=== PATIENT | female | born 1945 | race Caucasian/White ===

== ENCOUNTER 2017-01-28 09:27 | Emergency (ER) | payer MEDICARE, BC ==
[~2017-01-28] VITALS: Ht 160 cm; Wt 85.0 kg
[~2017-01-28 09:27] MED LIST: EPIPEN0.3 MG IM; KEFLEX500 M1 PO; MEDDOSEPAK PO; ROBITUSSIN AC10 ML PO; TAM75CAP PO
[2017-01-28 10:11] LABS: URINE BILIRUBIN - DIPSTICK NEGATIVE (NEGATIVE); URINE BLOOD DIPSTICK TRACE-INTACT (NEGATIVE); URINE COLOR YELLOW; URINE GLUCOSE - DIPSTICK NEGATIVE (NEGATIVE); URINE KETONE NEGATIVE (NEGATIVE); URINE PROTEIN - DIPSTICK NEGATIVE (NEG-TRACE); URINE SPECIFIC GRAVITY <=1.005
[2017-01-28 10:20] LABS: URINE LEUK ESTERASE SMALL (NEGATIVE); URINE NITRITE - DIPSTICK POSITIVE (Negative)
[2017-01-28 10:21] LABS: URINE CLARITY SLIGHT CLOUDY
[2017-01-28] MEDS ORDERED: CEPHALEXIN500 M1 PO (10:22)
[2017-01-28 10:24] LABS: URINE BACTERIA FEW hpf; URINE RBC 0-2 RBC/hpf (0-5)
[2017-01-28 10:30] VITALS: BP 144/76
[2017-01-28] MEDS ORDERED: DIFLUCAN150 MG PO (10:38)
== END 2017-01-28 10:30 | disposition home or self-care (01) ==
LOC: ED 09:27
PROVIDERS: Family Medicine
DX: N39.0 Urinary tract infection, site not specified (principal); R30.0 Dysuria; R35.0 Frequency of micturition

== ENCOUNTER 2018-01-20 11:31 | Emergency (ER) | payer MEDICARE, BC ==
[~2018-01-20] VITALS: Ht 160 cm; Wt 84.0 kg
[~2018-01-20 11:31] MED LIST changes: +CEPHALEXIN500 M1 PO; +DIFLUCAN150 MG PO
[2018-01-20 12:09] LABS: URINE BILIRUBIN - DIPSTICK NEGATIVE (NEGATIVE); URINE BLOOD DIPSTICK NEGATIVE (NEGATIVE); URINE CLARITY CLEAR; URINE COLOR YELLOW; URINE GLUCOSE - DIPSTICK NEGATIVE (NEGATIVE); URINE KETONE NEGATIVE (NEGATIVE); URINE LEUK ESTERASE NEGATIVE (NEGATIVE); URINE NITRITE - DIPSTICK NEGATIVE (Negative); URINE PH 5.5 (4.5-8.0); URINE PROTEIN - DIPSTICK NEGATIVE (NEG-TRACE); URINE SPECIFIC GRAVITY <=1.005; URINE UROBILINOGEN - DIPSTICK 0.2 E.U./dL (0.2)
[2018-01-20] MEDS ORDERED: PYRIDIUM200 MG PO (12:17)
[2018-01-20] MEDS ORDERED: MACRODANTIN100 MG PO (12:17)
[2018-01-20] MEDS ORDERED: DIFLUCAN100 MG PO (12:21)
[2018-01-20 12:22] VITALS: BP 135/73
== END 2018-01-20 12:22 | disposition home or self-care (01) ==
LOC: ED 11:31
PROVIDERS: Emergency Medicine
DX: N34.2 Other urethritis (principal)

== ENCOUNTER 2020-01-02 11:03 | Emergency (ER) | payer MEDICARE, BC ==
[~2020-01-02] VITALS: Ht 160 cm; Wt 72.7 kg
[~2020-01-02 11:03] MED LIST changes: +DIFLUCAN100 MG PO; +MACRODANTIN100 MG PO; +PYRIDIUM200 MG PO
[2020-01-02 11:58] LABS: HEMATOCRIT 39.4 % (37.0-47.0); HEMOGLOBIN 12.5 g/dl (12.0-16.0); IMMATURE GRANULOCYTES 0.3 % (0.0-5.0); MEAN CORPUSCULAR HGB 28.5 pG CALC (26.0-32.0); MEAN CORPUSCULAR HGB CONC 31.7 g/dL CAL (32.0-36.0); NEUT# 4.94 thou/uL (2.00-7.15); RED BLOOD COUNT 4.38 mill/uL (4.20-5.60); RED CELL DISTRI WIDTH 12.3 % (11.5-15.5)
[2020-01-02 12:20] LABS: ANION GAP 10 (6-22 (CALC)); BUN 12 mg/dL (8-23); BUN/CREATININE RATIO 15 (12-20 (CALC)); CARBON DIOXIDE 29 mmol/l (22-30); CHLORIDE 103 mmol/l (95-108); CREATININE 0.8 mg/dL (0.5-1.0); GFR > 60 ML/MIN (>=60 (CALC)); GFR FOR AFR.AMER. > 60 ML/MIN (>=60 (CALC)); POTASSIUM 4.5 mmol/l (3.5-5.1); SODIUM 138 mmol/l (137-146)
[2020-01-02] MEDS ORDERED: HYDROCO/APAP1 TA9 PO (15:28)
[2020-01-02] MEDS ORDERED: PENICILLN VK500 MG PO (15:28)
[2020-01-02] MEDS ORDERED: IBUPROFEN600 MG PO (15:28)
[2020-01-02 15:52] VITALS: BP 140/61
== END 2020-01-02 15:48 | disposition home or self-care (01) ==
LOC: ED 11:03
PROVIDERS: Student in an Organized Health Care Education/Training Program
DX: K04.7 Periapical abscess without sinus (principal)
CPT/HCPCS: Q9967

== ENCOUNTER 2021-05-18 07:04 | Day surgery (SDC) | payer MEDICARE, BC ==
[~2021-05-18 07:04] MED LIST changes: +B121000 MC1 PO; +BIOTIN EXTR10000 MCG PO; +CALCIUM + D PO; +CENTRUM SILVER PO; +COQ10100 MG PO; +HYDROCO/APAP1 TA9 PO; +IBUPROFEN600 MG PO; +PENICILLN VK500 MG PO; +PEPCID20 MG PO; +TUMERIC PO; +ZEGERID1 CA1 PO; +[UNRECOGNIZED DRUG - OTHER] PO
[2021-05-18 09:57] VITALS: BP 118/56
== END 2021-05-18 09:25 | disposition home or self-care (01) ==
LOC: ORM 07:04
PROVIDERS: ATTEND Surgery
PROC: 0DJD8ZZ Inspection of Lower Intestinal Tract, Via Natural or Artificial Opening Endoscopic (ICD-10-PCS; principal; 2021-05-18)
DX: Z12.11 Encounter for screening for malignant neoplasm of colon (principal); K57.30 Diverticulosis of large intestine without perforation or abscess without bleeding; K64.4 Residual hemorrhoidal skin tags; Z86.010 Personal history of colon polyps
CPT/HCPCS: G0105

== ENCOUNTER 2021-06-17 06:58 | Day surgery (SDC) | payer MEDICARE, BC ==
[~2021-06-17 06:58] MED LIST changes: +ALLERGY10 M2; +CONTRAVE PO; +TURMERIC CURCU500 MG PO
[2021-06-17 08:42] VITALS: BP 117/78
== END 2021-06-17 08:50 | disposition home or self-care (01) ==
LOC: ENDO 06:58 → ORM 08:00 → ENDO 08:00
PROVIDERS: ATTEND Surgery
PROC: 0DJ08ZZ Inspection of Upper Intestinal Tract, Via Natural or Artificial Opening Endoscopic (ICD-10-PCS; principal; 2021-06-17)
DX: K21.9 Gastro-esophageal reflux disease without esophagitis (principal); K44.9 Diaphragmatic hernia without obstruction or gangrene